=== PATIENT | female | born 1995 | race Caucasian/White ===

== ENCOUNTER 2024-09-13 18:39 | Emergency (ER) | payer SELFPAY ==
[~2024-09-13] VITALS: Ht 175.3 cm; Wt 68.3 kg
[2024-09-13 20:17] LABS: BASO # 0.1 10^3/uL (0.0-0.2); BASO % 0.6 % (0.0-1.0); EOS # 0.1 10^3/uL (0.0-0.5); EOS % 0.8 % (0.0-3.0); HEMATOCRIT 43.5 % (36.0-47.0); HEMOGLOBIN 14.9 g/dl (12.0-15.5); LYMPH # 1.5 10^3/uL (1.5-5.0); LYMPH % 14.7 % (24.0-44.0); MEAN CORPUSCULAR HGB CONC 34.3 g/dl (32.0-36.5); MEAN CORPUSCULAR VOLUME 90.4 fl (80.0-96.0); MONO # 0.5 10^3/uL (0.0-0.8); NEUTROPHILS # 8.2 10^3/uL (1.5-8.5); NEUTROPHILS % 78.6 % (36.0-66.0); PLATELET COUNT, AUTOMATED 146 10^3/uL (150-450); RED BLOOD COUNT 4.81 10^6/uL (4.00-5.40); WHITE BLOOD COUNT 10.4 10^3/uL (4.0-10.0)
[2024-09-13 20:41] LABS: ALBUMIN 4.6 G/DL (3.2-5.2); ALKALINE PHOSPHATASE 62 U/L (35-104); ALT/SGPT 27 U/L (7.0-40); AST/SGOT 13 U/L (<34); BILIRUBIN,DIRECT 0.3 MG/DL (<0.4); BLOOD UREA NITROGEN 11 MG/DL (9-23); CARBON DIOXIDE LEVEL 25 MMOL/L (20-31); CHLORIDE LEVEL 107 MMOL/L (98-107); CREATININE FOR GFR 0.69 MG/DL (0.55-1.30); GLOMERULAR FILTRATION RATE > 60.0 (>60); GLUCOSE, FASTING 113 MG/DL (60-100); MAGNESIUM LEVEL 2.1 MG/DL (1.8-2.4); POTASSIUM SERUM 4.2 MMOL/L (3.5-5.1); SODIUM LEVEL 142 MMOL/L (136-145); TOTAL PROTEIN 7.9 G/DL (5.7-8.2)
[2024-09-13 20:46] LABS: HCG, SERUM QUALITATIVE NEGATIVE (NEGATIVE)
[2024-09-13] MEDS: HALOPERIDOL LACTATE 5MG/ML VIAL IV ONE (21:05)
[2024-09-13 21:48] LABS: AMPHETAMINES LEVEL URINE NEGATIVE (NEGATIVE); BARBITURATES URINE NEGATIVE (NEGATIVE); BENZODIAZEPINES URINE NEGATIVE (NEGATIVE); COCAINE METABOLITE URINE NEGATIVE (NEGATIVE); METHADONE URINE NEGATIVE (NEGATIVE); OPIATES URINE NEGATIVE (NEGATIVE); PHENCYCLIDINE URINE NEGATIVE (NEGATIVE)
[2024-09-13 21:53] LABS: CANNABINOIDS URINE POSITIVE (NEGATIVE)
[2024-09-13] MEDS ORDERED: ISOVUE-370 76% 100ML VIAL As Ordered ONE (22:11)
[2024-09-13 22:17] LABS: C REACTIVE PROTEIN QUANTITATIV < 0.40 MG/DL (<1.0)
[2024-09-13 22:20] LABS: ERYTHROCYTE SEDIMENTATION RATE 9 mm/hr (0-20)
[2024-09-13] MEDS: METHOCARBAMOL 1,000 MG/10 ML VIAL IV ONE (22:22)
[2024-09-13] MEDS: KETOROLAC 30 MG/ML 1ML VIAL IV ONE (22:25)
[2024-09-13] MEDS ORDERED: DICL20GE TP (23:55)
[2024-09-13] MEDS ORDERED: METH-1164 PO (23:55)
[2024-09-13] MEDS ORDERED: NAPR-885 PO (23:55)
[2024-09-14 00:11] VITALS: BP 119/54; TEMP 97.4; O2SAT 97
== END 2024-09-14 00:13 | disposition home or self-care (01) ==
LOC: M ED 18:39
DX: M62.838 Other muscle spasm (principal); M62.830 Muscle spasm of back; F12.188 Cannabis abuse with other cannabis-induced disorder; F17.200 Nicotine dependence, unspecified, uncomplicated; Z79.1 Long term (current) use of non-steroidal anti-inflammatories (NSAID); Z79.899 Other long term (current) drug therapy
CPT/HCPCS: 72129; 80048; 80076; 80307; 81001; 83735; 84703; 85025; 85652; 86140; 96374; 96375; 99284; J1630; J1885; J2800; Q9967

== ENCOUNTER 2024-12-06 10:35 | Inpatient (IN) | payer MEDICAID, OTHER, SELFPAY ==
[~2024-12-06] VITALS: Ht 175.3 cm; Wt 66.9 kg
[~2024-12-06 10:35] MED LIST: DICL20GE TP; METH-1164 PO; NAPR-885 PO
[2024-12-06] MEDS: NICOTINE 21MG/24HR 1 EA TRANSDERMAL TD ONE (11:16)
[2024-12-06 11:18] LABS: HEMOGLOBIN 15.7 g/dl (12.0-15.5); MEAN CORPUSCULAR HEMOGLOBIN 30.7 pg (27.0-33.0); MEAN CORPUSCULAR HGB CONC 34.1 g/dl (32.0-36.5); PLATELET COUNT, AUTOMATED 175 10^3/uL (150-450); RED BLOOD COUNT 5.11 10^6/uL (4.00-5.40); WHITE BLOOD COUNT 8.6 10^3/uL (4.0-10.0)
[2024-12-06 11:48] LABS: HCG, SERUM QUALITATIVE NEGATIVE (NEGATIVE)
[2024-12-06 11:51] LABS: AMPHETAMINES LEVEL URINE NEGATIVE (NEGATIVE); BARBITURATES URINE NEGATIVE (NEGATIVE)
[2024-12-06 11:53] LABS: BENZODIAZEPINES URINE NEGATIVE (NEGATIVE); COCAINE METABOLITE URINE NEGATIVE (NEGATIVE); METHADONE URINE NEGATIVE (NEGATIVE); OPIATES URINE NEGATIVE (NEGATIVE); PHENCYCLIDINE URINE NEGATIVE (NEGATIVE)
[2024-12-06 11:55] LABS: CANNABINOIDS URINE POSITIVE (NEGATIVE); ETHYL ALCOHOL (ETHANOL) 0.004 % (0.000-0.010)
[2024-12-06 11:56] LABS: SALICYLATE LEVEL < 3.0 MG/DL (<30)
[2024-12-06 11:57] LABS: ALBUMIN 4.7 G/DL (3.2-5.2); ALKALINE PHOSPHATASE 60 U/L (35-104); ALT/SGPT 19 U/L (7.0-40); AST/SGOT 15 U/L (<34); BILIRUBIN,DIRECT 0.2 MG/DL (<0.4); BILIRUBIN,TOTAL 0.6 MG/DL (0.3-1.2); BLOOD UREA NITROGEN 11 MG/DL (9-23); CALCIUM LEVEL 9.6 MG/DL (8.5-10.1); CARBON DIOXIDE LEVEL 23 MMOL/L (20-31); CHLORIDE LEVEL 108 MMOL/L (98-107); CREATININE FOR GFR 0.78 MG/DL (0.55-1.30); GLOMERULAR FILTRATION RATE > 60.0 (>60); GLUCOSE, FASTING 107 MG/DL (60-100); POTASSIUM SERUM 4.6 MMOL/L (3.5-5.1); SODIUM LEVEL 140 MMOL/L (136-145); TOTAL PROTEIN 7.9 G/DL (5.7-8.2)
[2024-12-06] MEDS ORDERED: HOME MED LIST COMPLETE! XX SCH (13:10)
[2024-12-07 06:27] VITALS: BP 124/77; TEMP 98.1; O2SAT 100
[2024-12-07] MEDS: ESCITALOPRAM OXALATE 10 MG TAB (LEXAPRO) PO SCH (09:25)
[2024-12-07] MEDS: NICOTINE 21MG/24HR 1 EA TRANSDERMAL TD SCH (09:46)
[2024-12-07 15:04] VITALS: BP 131/90; TEMP 97.8; O2SAT 98
[2024-12-07] MEDS ORDERED: MOM 30ML SUSPENSION UDC PO PRN (20:20)
[2024-12-07] MEDS ORDERED: OLANZapine ORAL DISINTEGRATING TAB 5MG PO PRN (20:20)
[2024-12-07] MEDS ORDERED: ACETAMINOPHEN 325 MG TAB PO PRN (20:20)
[2024-12-07] MEDS ORDERED: diphenhydrAMINE 25MG CAP PO PRN (20:20)
[2024-12-07] MEDS ORDERED: MAALOX 30 ML SUSP *UDC PO PRN (20:20)
[2024-12-07] MEDS ORDERED: LORazepam 1 MG TAB PO PRN (20:20)
[2024-12-07] MEDS ORDERED: IBUPROFEN 400MG TAB PO PRN (20:20)
[2024-12-07] MEDS: traZODone 50 MG TAB PO PRN (21:25)
[2024-12-08 06:29] VITALS: BP 119/67; TEMP 98.1; O2SAT 100
[2024-12-08 15:33] VITALS: BP 128/77; TEMP 97.4; O2SAT 97
[2024-12-09 06:30] VITALS: BP 115/56; TEMP 98.4; O2SAT 100
[2024-12-09 16:34] VITALS: BP 142/72; TEMP 98; O2SAT 97
[2024-12-10 06:29] VITALS: BP 136/61; TEMP 98.4; O2SAT 98
[2024-12-10] MEDS ORDERED: HYDR-3363 PO (07:46)
[2024-12-10] MEDS ORDERED: LEXA1TAB PO (07:46)
[2024-12-10] MEDS ORDERED: TRAZ-252 PO (07:46)
== END 2024-12-10 11:55 | disposition home or self-care (01) | DRG 754 ==
LOC: M ED 10:35 → M ED INP 15:33 → M PSY 17:15
PROVIDERS: ADMIT Psychiatry & Neurology Psychiatry; ATTEND Psychiatry & Neurology Psychiatry
DX: F32.A Depression, unspecified (principal); F41.9 Anxiety disorder, unspecified; M54.9 Dorsalgia, unspecified; G89.29 Other chronic pain; F17.290 Nicotine dependence, other tobacco product, uncomplicated; F43.10 Post-traumatic stress disorder, unspecified; Z91.410 Personal history of adult physical and sexual abuse